=== PATIENT | female | born 1960 | race African-American/Black ===

== ENCOUNTER 2018-01-29 12:08 | Emergency (ER) | payer MEDICAID ==
[~2018-01-29] VITALS: Ht 172.7 cm; Wt 99.8 kg
[2018-01-29] MEDS ORDERED: methylPREDNISolone SOD SUCC 125 MG/2 ML VL IM ONE (13:15)
[2018-01-29 14:11] VITALS: BP 156/83
== END 2018-01-29 14:13 | disposition home or self-care (01) ==
LOC: ER 12:08
DX: T78.40XA Allergy, unspecified, initial encounter (principal); M79.672 Pain in left foot; I10 Essential (primary) hypertension; Z90.710 Acquired absence of both cervix and uterus; Z98.51 Tubal ligation status; Z88.0 Allergy status to penicillin; X58.XXXA Exposure to other specified factors, initial encounter
CPT/HCPCS: 96372; 99283; J2930

== ENCOUNTER 2018-10-17 20:06 | Emergency (ER) | payer MEDICAID ==
[~2018-10-17] VITALS: Ht 172.7 cm; Wt 99.8 kg
[2018-10-17 20:19] VITALS: BP 129/62
[2018-10-17 21:22] LABS: Eosinophils # (auto) 0 uL; Hemoglobin 12.2 g/dL (12.2-16.2); Lymphocytes # (auto) 1.6 uL; Neutrophils # (auto) 11.7 uL; Nucleated Red Blood Cells % 0.1 %; White Blood Cell 14.3 10^3/uL (4.4-10.8)
[2018-10-17 21:27] LABS: Basophils # (auto) 0 uL; Basophils % (auto) 0.2 % (0.0-2.0); Hematocrit 38.5 % (36.0-46.0); Lymphocytes % (auto) 11.4 % (10.0-50.0); Mean Corpuscular Hemoglobin 22.7 pg (28.0-32.0); Mean Corpuscular Hgb Conc. 31.6 g/dL (32.0-36.0); Mean Corpuscular Volume 71.9 fL (80.0-100.0); Monocytes # (auto) 0.9 uL; Monocytes % (auto) 6.6 % (0.0-12.0); Neutrophils % (auto) 81.8 % (37.0-80.0); Platelet Count (auto) 205 10^3/uL (140-450); Red Blood Cells 5.36 10^6/uL (4.0-5.20); Red Cell Distribution Width 16.4 % (11.8-14.3)
[2018-10-17 21:53] LABS: Albumin 3.4 g/dL (3.4-5.0); Anion Gap 11 (5-15); Blood Urea Nitrogen 18 mg/dL (7-18); Calcium 8.4 mg/dL (8.5-10.1); Carbon Dioxide 21 mmol/L (21-32); Chloride 105 mmol/L (98-107); Glucose 129 mg/dL (74-106); Potassium 3.3 mmol/L (3.5-5.1); Sodium 137 mmol/L (136-145)
[2018-10-17 21:56] LABS: Alanine Aminotransferase 373 U/L (13-56); Alkaline Phosphatase 209 U/L (45-117); Aspartate Aminotransferase 76 U/L (15-37); BUN/Creatinine Ratio 15.4; Bilirubin, Total 0.5 mg/dL (0.2-1.0); GFR African American 61 mL/min; GFR Non-African American 51 mL/min
[2018-10-17 22:15] LABS: Urine Bacteria FEW /hpf (None Seen); Urine Blood Negative /uL (Negative); Urine Hyaline Cast FEW /lpf (0 - 2); Urine Mucus FEW (None Seen); Urine Specific Gravity 1.036 (1.001-1.035); Urine WBC 4 /hpf (0 - 5)
== END 2018-10-18 06:30 | disposition left against medical advice (07) ==
LOC: ER 20:14
DX: R10.13 Epigastric pain (principal); Z53.21 Procedure and treatment not carried out due to patient leaving prior to being seen by health care provider
CPT/HCPCS: 36415; 74176; 80053; 81001; 84484; 85025

== ENCOUNTER 2019-08-13 07:54 | Day surgery (SDC) | payer MEDICAID ==
[~2019-08-13] VITALS: Ht 172.7 cm; Wt 101.6 kg
[2019-08-13] MEDS ORDERED: LIDOCAINE 2%HCL (LOCAL ANESTH.) INJ 20ML MDV ONE (08:36)
[2019-08-13] MEDS ORDERED: ANGIOMAX 250 MG VIAL IV ONE (08:53)
[2019-08-13] MEDS ORDERED: fentaNYL CITRATE 100 MCG/2 ML VL ONE (08:53)
[2019-08-13] MEDS ORDERED: SODIUM CHL 0.9% 0 ML ONE (08:53)
[2019-08-13] MEDS ORDERED: MIDAZOLAM HCL 1MG/1ML-2 ML VIAL ONE (08:53)
[2019-08-13] MEDS ORDERED: HEPARIN SODIUM (PORCINE) 5000 UNITS/ML 1ML VIAL ONE ×2 (08:53→09:40)
[2019-08-13] MEDS ORDERED: VERAPAMIL 2.5MG/ML INJ 2ML VIAL IV ONE (08:53)
[2019-08-13] MEDS ORDERED: IODIXANOL 320MG/ML 100ML BTL IV ONE (08:54)
[2019-08-13] MEDS ORDERED: HEPARIN IN NS 1000Units/500mL 0 ML ONE (09:18)
[2019-08-13] MEDS ORDERED: ONDANSETRON HCL 4 MG/2 ML VIAL ONE (09:48)
[2019-08-13] MEDS ORDERED: HYDROcodone-ACET 5/325MG TAB PO PRN (10:30)
[2019-08-13] MEDS ORDERED: ACETAMINOPHEN 500 MG TAB PO PRN (10:30)
== END 2019-08-13 12:02 | disposition home or self-care (01) ==
LOC: CATH 07:54
PROVIDERS: ATTEND Internal Medicine
DX: R94.39 Abnormal result of other cardiovascular function study (principal); M79.89 Other specified soft tissue disorders; K21.9 Gastro-esophageal reflux disease without esophagitis; I10 Essential (primary) hypertension; Z79.899 Other long term (current) drug therapy; Z98.51 Tubal ligation status; Z90.710 Acquired absence of both cervix and uterus; Z88.0 Allergy status to penicillin; Z98.891 History of uterine scar from previous surgery
CPT/HCPCS: 93458; C1769; C1894; J1644; J2250; J2405; J3010; Q9967; 99152; 99153

== ENCOUNTER 2020-09-19 12:30 | Emergency (ER) | payer MEDICAID, OTHER ==
[~2020-09-19] VITALS: Ht 172.7 cm; Wt 108.9 kg
[2020-09-19 12:36] VITALS: BP 156/74
[2020-09-19 13:39] LABS: Basophils # (auto) 0.1 10 ^3/uL (0-0.2); Eosinophils # (auto) 0.1 10 ^3/uL (0-0.8); Hemoglobin 11.8 g/dL (12.2-16.2); Mean Corpuscular Hemoglobin 23.6 pg (28.0-32.0); Nucleated Red Blood Cells % 0.1 %
[2020-09-19 13:42] LABS: Eosinophils % (auto) 1.3 % (0.0-7.0); Hematocrit 36.9 % (36.0-46.0); Lymphocytes # (auto) 1.8 10 ^3/uL (0.4-5.4); Lymphocytes % (auto) 25.6 % (10.0-50.0); Mean Corpuscular Volume 73.7 fL (80.0-100.0); Monocytes # (auto) 0.6 10 ^3/uL (0-1.3); Monocytes % (auto) 8.1 % (0.0-12.0); Neutrophils # (auto) 4.5 10 ^3/uL (1.6-8.6); Platelet Count (auto) 243 10^3/uL (140-450)
[2020-09-19 14:01] LABS: Urine Bacteria NONE SEEN /hpf (None Seen); Urine Blood Negative /uL (Negative); Urine Hyaline Cast FEW /lpf (0 - 2); Urine Mucus FEW (None Seen); Urine Specific Gravity 1.028 (1.001-1.035); Urine WBC 23 /hpf (0 - 5)
[2020-09-19 14:08] LABS: Albumin 3.5 g/dL (3.4-5.0); Calcium 8.7 mg/dL (8.5-10.1); Potassium 3.7 mmol/L (3.5-5.1)
[2020-09-19 14:12] LABS: BUN/Creatinine Ratio 13.7; Bilirubin, Total 0.2 mg/dL (0.2-1.0); Total Protein 7.7 g/dL (6.4-8.2)
[2020-09-19] MEDS ORDERED: KETOROLAC TROMETH 60MG/2ML VIAL IM ONE (14:15)
== END 2020-09-19 15:03 | disposition home or self-care (01) ==
LOC: ER 12:30
DX: N39.0 Urinary tract infection, site not specified (principal); Z88.0 Allergy status to penicillin
CPT/HCPCS: 36415; 74176; 80053; 81001; 83690; 85025; 96372; 99284; J1885